=== PATIENT | male | born 1995 | race Caucasian/White ===

== ENCOUNTER 2017-03-07 22:55 | Emergency (ER) | payer MEDICAID ==
[~2017-03-07] VITALS: Ht 185.4 cm; Wt 123.0 kg
[2017-03-07 23:35] LABS: BASOPHILS % 0.6 % (0.0-2.0); EOSINOPHILS % 1.9 % (0.0-5.0); HEMATOCRIT. 42.1 % (42.0-52.0); HEMOGLOBIN. 13.8 g/dL (14.0-18.0); LYMPHOCYTES % 28.1 % (20.0-50.0); MEAN CORPUSCULAR HEMOGLOBIN 28.1 pg (28.0-32.0); MEAN CORPUSCULAR VOLUME 85.7 fL (80.0-94.0); MEAN PLATELET VOLUME 7.6 fl (7.4-10.4); MONOCYTES % 10.6 % (2.0-8.0); NEUTROPHILS % 58.8 % (40.0-76.0); PLATELET 394 x1000/uL (130-400); RED BLOOD CELL COUNT 4.91 mill/uL (4.7-6.1)
[2017-03-07 23:49] LABS: CARBON DIOXIDE 26 mEq/L (21-32); CHLORIDE 103 mEq/L (98-107)
[2017-03-08] MEDS ORDERED: ONDANSETRON 4MG ODT PO ONE
[2017-03-08 01:45] VITALS: BP 133/94
== END 2017-03-08 01:51 | disposition home or self-care (01) ==
LOC: ER 22:55
DX: H66.93 Otitis media, unspecified, bilateral (principal); A08.4 Viral intestinal infection, unspecified; R05 Cough
CPT/HCPCS: 36415; 71010; 80053; 85025; 99285; Q0162